=== PATIENT | female | born 1955 | race Hispanic/Latino ===

== ENCOUNTER 2017-03-31 07:09 | Day surgery (SDC) | payer MEDICAID ==
[~2017-03-31] VITALS: Ht 167.6 cm; Wt 49.6 kg
[~2017-03-31 07:09] MED LIST: BIOT10004 PO; COD30 PO; CODEINE PO; ESCI20TA36 PO; LORA1TAB3 PO; MULT-1203 PO; URSO300C4 PO; [UNRECOGNIZED DRUG - OTHER]
[2017-03-31 08:26] VITALS: BP 131/74
[2017-03-31 10:40] VITALS: BP 106/50
== END 2017-03-31 11:10 | disposition home or self-care (01) ==
LOC: DAH 07:09 → ENDO 07:09
PROVIDERS: ATTEND Internal Medicine
DX: K29.70 Gastritis, unspecified, without bleeding (principal); E78.5 Hyperlipidemia, unspecified; Z90.49 Acquired absence of other specified parts of digestive tract; Z98.890 Other specified postprocedural states; Z79.899 Other long term (current) drug therapy
CPT/HCPCS: 43237; A4606; 43231; 43275

== ENCOUNTER 2017-06-26 08:31 | Day surgery (SDC) | payer MEDICAID ==
[2017-06-26 08:56] LABS: BASOPHILS % (AUTO) 0.4 % (0.0-5.0); EOSINOPHILS % (AUTO) 2.1 % (0.0-8.0); LYMPHOCYTES % (AUTO) 32.2 % (21.0-51.0); MEAN CORPUSCULAR HEMOGLOBIN 31.5 pg (27.0-33.0); MEAN CORPUSCULAR HGB CONC 34.2 g/dL (32.0-36.0); MEAN CORPUSCULAR VOLUME 92.1 fL (79-99); MONOCYTES % (AUTO) 10.2 % (3.0-13.0); NEUTROPHILS % (AUTO) 55.1 % (40.0-77.0); PLATELET COUNT (AUTO) 184 K/uL (130-400); RED BLOOD CELL COUNT(AUTO) 3.91 MIL/uL (4.00-5.50); RED CELL DISTRIBUTION WIDTH 13.6 % (11.0-15.5); WHITE BLOOD COUNT (AUTO) 5.1 K/uL (4.8-10.8)
[2017-06-26 09:11] LABS: ALBUMIN 3.6 g/dL (3.5-5.0); BILIRUBIN,TOTAL 0.7 mg/dL (0.2-1.0); CREATININE 0.6 mg/dL (0.5-1.5); POTASSIUM 4.2 mmol/L (3.5-5.1); TOTAL PROTEIN, SERUM 7.3 g/dL (6.0-8.3)
[2017-06-26 09:19] LABS: INR 0.95 (0.85-1.15); PARTIAL THROMBOPLASTIN TIME 26.4 SEC (26.3-35.5)
[2017-06-26] MEDS ORDERED: SODIUM CHLORIDE 0.9% 1000ML 1,000 ML IV ONE (10:18)
[2017-06-26] MEDS ORDERED: MIDAZOLAM HCL 1 MG/ML 2ML VIAL ONE (11:11)
[2017-06-26] MEDS ORDERED: FENTANYL CITRATE PF 50 MCG/1 ML 2ML VIAL ONE (11:11)
[2017-06-26 13:07] VITALS: BP 95/46
[2017-06-26 13:46] VITALS: BP 110/57
== END 2017-06-26 13:49 | disposition home or self-care (01) ==
LOC: DAH 08:31 → EDSTATUS 10:00 → DAH 13:49
PROVIDERS: ATTEND Internal Medicine
DX: K76.0 Fatty (change of) liver, not elsewhere classified (principal); K74.1 Hepatic sclerosis; E78.5 Hyperlipidemia, unspecified; F41.9 Anxiety disorder, unspecified; Z90.49 Acquired absence of other specified parts of digestive tract; Z98.890 Other specified postprocedural states; Z79.899 Other long term (current) drug therapy; Z88.2 Allergy status to sulfonamides; K29.70 Gastritis, unspecified, without bleeding
CPT/HCPCS: 36415; 47000; 77012; 80053; 85025; 85610; 85730; 88307; 99152; C2615; J2250; J3010; J7030